=== PATIENT | female | born 1990 | race Caucasian/White ===

== ENCOUNTER → 2017-05-20 | Outpatient (REF) | payer OTHER | LOC: M SFHCCLAY 10:35 | DX: J02.9 Acute pharyngitis, unspecified (principal) ==

== ENCOUNTER → 2017-11-06 | Outpatient (REF) | payer OTHER ==
[2017-11-06 12:45] LABS: BASO % 0.3 % (0.0-1.0); EOS # 0.2 10^3/uL (0.0-0.50); EOS % 2.2 % (0.0-3.0); HEMATOCRIT 35.5 % (36.0-47.0); HEMOGLOBIN 12.2 g/dl (12.0-15.5); IMMATURE GRANULOCYTE % 0.8 % (0-3.0); LYMPH # 2.2 10^3/uL (1.5-6.5); LYMPH % 21.7 % (24.0-44.0); MEAN CORPUSCULAR HEMOGLOBIN 29.8 pg (27.0-33.0); MEAN CORPUSCULAR HGB CONC 34.4 g/dl (32.0-36.5); MEAN CORPUSCULAR VOLUME 86.6 fl (80.0-96.0); MONO # 0.6 10^3/uL (0.0-0.8); MONO % 6.1 % (0.0-5.0); NEUTROPHILS # 7.1 10^3/uL (1.8-7.7); NEUTROPHILS % 68.9 % (36.0-66.0); PLATELET COUNT, AUTOMATED 320 10^3/uL (150-450); RED CELL DISTRIBUTION WIDTH 13.2 % (11.5-14.5); WHITE BLOOD COUNT 10.2 10^3/uL (4.0-10.0)
[2017-11-06 14:42] LABS: CHLAMYDIA DNA AMPLIFICATION NEGATIVE (NEGATIVE); GC DNA AMPLIFICATION NEGATIVE (NEGATIVE)
[2017-11-07 10:31] LABS: RUBELLA IgG QUALITATIVE IMMUNE (IMMUNE)
[2017-11-07 10:42] LABS: HBsAg Prenatal NEGATIVE (NEGATIVE)
[2017-11-07 11:01] LABS: HIV 1&2 SCREEN CENTAUR NEGATIVE (NEGATIVE)
[2017-11-07 11:01] LABS: HEPATITIS C VIRUS ABY INDEX 0.1 INDEX (<0.8)
== END ==
LOC: M LAB REF 11:50
DX: Z34.81 Encounter for supervision of other normal pregnancy, first trimester (principal); Z3A.12 12 weeks gestation of pregnancy

== ENCOUNTER → 2017-12-11 | Outpatient (REF) | payer OTHER | LOC: M LABDRAWC 11:49 | DX: Z34.82 Encounter for supervision of other normal pregnancy, second trimester (principal); Z36.89 Encounter for other specified antenatal screening | CPT/HCPCS: 87086 ==

== ENCOUNTER → 2017-12-16 | Outpatient (REF) | payer OTHER, BC | LOC: M LAB REF 17:34 | DX: Z34.82 Encounter for supervision of other normal pregnancy, second trimester (principal) ==

== ENCOUNTER → 2017-12-22 | Outpatient (CLI) | payer OTHER, BC | LOC: M RAD 13:29 | DX: Z36.89 Encounter for other specified antenatal screening (principal); Z3A.19 19 weeks gestation of pregnancy | CPT/HCPCS: 76811 ==

== ENCOUNTER → 2018-01-26 | Outpatient (CLI) | payer BC, OTHER | LOC: M RAD 11:26 | DX: O32.1XX0 Maternal care for breech presentation, not applicable or unspecified (principal); Z36.89 Encounter for other specified antenatal screening; Z3A.26 26 weeks gestation of pregnancy | CPT/HCPCS: 76816 ==

== ENCOUNTER → 2018-01-26 | Outpatient (CLI) | payer BC, OTHER ==
[2018-01-26 13:45] LABS: HEMATOCRIT 36.2 % (36.0-47.0); MEAN CORPUSCULAR HEMOGLOBIN 29.8 pg (27.0-33.0); MEAN CORPUSCULAR HGB CONC 33.1 g/dl (32.0-36.5); MEAN CORPUSCULAR VOLUME 89.8 fl (80.0-96.0); PLATELET COUNT, AUTOMATED 328 10^3/uL (150-450); RED BLOOD COUNT 4.03 10^6/uL (4.00-5.40); RED CELL DISTRIBUTION WIDTH 13.7 % (11.5-14.5); WHITE BLOOD COUNT 12.4 10^3/uL (4.0-10.0)
[2018-01-26 13:52] LABS: GLUCOSE CHALLENGE TEST 1 HOUR 118 MG/DL (LESS THAN 140)
== END ==
LOC: M SMT 09:21
DX: Z34.02 Encounter for supervision of normal first pregnancy, second trimester (principal)
CPT/HCPCS: 82950

== ENCOUNTER → 2018-04-07 | Outpatient (REF) | payer OTHER | LOC: M LAB REF 17:02 | DX: Z34.83 Encounter for supervision of other normal pregnancy, third trimester (principal) ==

== ENCOUNTER 2018-05-02 07:25 | Inpatient (IN) | payer BC, OTHER ==
[~2018-05-02] VITALS: Ht 152.4 cm; Wt 113.9 kg
[2018-05-02] VITALS (20 sets, daily range): BP systolic 109–145; BP diastolic 55–90
[2018-05-02] MEDS ORDERED: LACTATED RINGER'S 1000 ML IV STA (08:00)
--- NOTE | 2018-05-02 08:16 | HPEPDOC ---
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 BREAST: . ABDOMEN: Gravid and non-tender to touch. FETUS: Is vertex (VTX) by sterile vaginal examination (SVE), fetus is vertex (VTX) by [place]. HEART RATE: Regular rate and rhythm. LUNGS: Clear to auscultation (CTA). EXTREMITIES: No edema. No clonus. Deep tendon reflexes (DTRs) + 2. Laboratory Data [facility]H [facility] Laboratory Tests 2 05/02/18 07:42: Serology Scanned Report Hepatitis B Testing Pertinent Laboratoy Data Blood Type: A+ RBC Antibody Screen: Negative HIV: Negative Hepatitis B: Negative Hepatitis C: Negative Rapid Plasma Reagin: Nonreactive Rubella: Nonreactive Chlamydia/Gonorrhea: Negative Group B Streptococcus: Negative Quad Screen Test: Declined Glucose Tolerance Test: 118 Anatomy Ultrasound Ultrasound Date: Dec 22, 2017 Placenta Location: Posterior Normal Anatomy: Yes Placenta Previa: No Estimated Weight (grams): 315 Steroid Therapy Steroid Therapy: No Vaginal Examination Dilation: None Effacement: 30% Station: -3 Cervical Consistency: Medium Cervical Position: Posterior Assessment Heart Rate (FHR): 145 Variability: Moderate Accelerations: Positive Decelerations: None Tocometer Contractions: No Assessment/Plan Assessment Susu is a 27-year-old (G)1 para (P)0-0-0-0 at 40+0 weeks by 12-week ultrasound. Presents to Labor and Delivery (L&D) for induction of labor due to gestational hypertension. Denies LOF, bleeding or regular UC. Plan Admit and orient per consult Dr Ovalle Steward/Stewardess Third and consent. Diet: regular. Group B Streptococcus (GBS) negative. Labs and intravenous (IV) per unit protocol. Counseled on misoprostol, Pitocin and induction of labor (IOL). Lactated Ringers (LR): Bolus 500 mL, then saline lock. Plans to labor ad phani Anticipate normal spontaneous delivery (). C-S as appropriate. Jolie Vazquez CNM May 02, 2018 08:16
[2018-05-02 08:31] LABS: HEMATOCRIT 36.1 % (36.0-47.0); HEMOGLOBIN 12.4 g/dl (12.0-15.5); MEAN CORPUSCULAR HEMOGLOBIN 30.2 pg (27.0-33.0); MEAN CORPUSCULAR HGB CONC 34.3 g/dl (32.0-36.5); MEAN CORPUSCULAR VOLUME 87.8 fl (80.0-96.0); PLATELET COUNT, AUTOMATED 312 10^3/uL (150-450); RED BLOOD COUNT 4.11 10^6/uL (4.00-5.40); WHITE BLOOD COUNT 12.3 10^3/uL (4.0-10.0)
[2018-05-02] MEDS: miSOPROStol 50 MCG 1/2 TAB (S0191) PO SCH ×3 (08:33→19:45)
[2018-05-02 09:39] LABS: ALT/SGPT 13 U/L (12-78); BILIRUBIN,TOTAL 0.3 MG/DL (0.2-1.0); CREATININE FOR GFR 0.49 MG/DL (0.55-1.30); GLOMERULAR FILTRATION RATE > 60.0 (>60); LDH LACTATE DEHYDROGENASE 187 U/L (84-246); URIC ACID 4.9 MG/DL (2.6-6.0)
--- NOTE | 2018-05-02 21:40 | NUR ---
Progress Note Patient has received 3 doses of misoprostol 50mcg PO for cervical ripening. No VB/LOF/painful uctx. Patient feeling intermittent mildly uncomfortable ctxs. +FM. No ERICKSON, visual changes, RUQ pain, sob, cp. Currently normotensive, normal HR, afebrile SVE: /-3 EFM: Cat I [place]: irreg ctx A/P: Reassuring maternal and status during cervical ripening phase of IOL. -Plan is for Cook balloon mechanical cervical dilation after 4th dose of misoprostol, if cervix remains unchanged. Beatriz Ovalle DO
[2018-05-03] VITALS (25 sets, daily range): BP systolic 102–148; BP diastolic 56–91
[2018-05-03] MEDS: miSOPROStol 50 MCG 1/2 TAB (S0191) PO SCH ×2 (00:29→04:58)
--- NOTE | 2018-05-03 09:32 | NUR ---
Progress Note Patient has received a total of 5 doses of misoprostol 50mcg PO. No VB/LOF or frequent, painful uterine contractions. Currently normotensive, afebrile SVE: /-2, soft, intact/cephalic EFM: Cat I [place]: irreg contractions Cook balloon inserted: 60ml/40ml A/P: Reassuring maternal and status. Undergoing cervical ripening. -Cook balloon + Pitocin -Repeat SVE when balloon is out. Beatriz Ovalle DO
[2018-05-03] MEDS ORDERED: OXYTOCIN DRIP 30 UNITS in APPROPRIATE DILUENT 1 EA IV SCH ×2 (09:45→23:24)
[2018-05-03] MEDS: LACTATED RINGER'S 1000 ML IV SCH ×2 (10:15→18:47)
[2018-05-03] MEDS ORDERED: PROMETHAZINE INJ 25 MG/ML VIAL (J2550) IV ONE ×2 (10:45→17:45)
[2018-05-03] MEDS ORDERED: BUTORPHANOL 2 MG/ML INJ (J0595) IV ONE (10:45)
--- NOTE | 2018-05-03 17:16 | NUR ---
Progress Note Cook balloon fell out at 1535. +Bloody show. No LOF. Patient is significantly more uncomfortable with uterine contractions. Intermittently hypertensive (mild range), afebrile SVE: 5cm/90%/-1, cephalic AROM, clear FSE placed (RN complains of difficulty tracing FHR continuously): FHR Cat I [place]: ctxs every 3-5 min; not tracing very well. A/P: Approaching active phase of labor. Reassuring maternal and status. -Repeat SVE in 2-4 hours -Continue with Pitocin. -Patient considering epidural. Beatriz Ovalle DO
[2018-05-03] MEDS ORDERED: BUTORPHANOL 2 MG/ML INJ (J0595) IV PRN (17:45)
[2018-05-03] MEDS ORDERED: FENTANYL 2MCG/ML ROPIVACAINE 0.2% IN 0.9% NACL 100ML IVBAG As Ordered ONE (19:12)
[2018-05-03] MEDS ORDERED: ePHEDrine SULFATE 25 MG/5 ML(5MG/ML) SYRINGE As Ordered ONE (22:04)
[2018-05-03] MEDS ORDERED: ePHEDrine SULFATE 25 MG/5 ML(5MG/ML) SYRINGE IV PRN (22:15)
[2018-05-03] MEDS ORDERED: ONDANSETRON 4MG/2ML VIAL (J2405) IV PRN ×2 (22:15→23:30)
[2018-05-03] MEDS ORDERED: REFRIGERATOR IV KEYS XX PRN (22:15)
[2018-05-03] MEDS ORDERED: NALOXONE INJ 0.4 MG/1 ML VIAL (J2310) IV PRN (22:15)
[2018-05-03] MEDS ORDERED: LACTATED RINGER'S 1000 ML IV PRN (22:15)
[2018-05-03] MEDS ORDERED: EPIDURAL/PCA KEYS XX PRN (22:15)
[2018-05-03] MEDS ORDERED: diphenhydrAMINE INJ 50MG/ML VIAL (J1200) IV PRN (22:15)
[2018-05-03] MEDS ORDERED: FENTANYL/ROPIVACAINE/NACL BAG 100 ML EPIDURAL SCH (22:15)
[2018-05-03] MEDS ORDERED: EPIDURAL COMMENT XX SCH (22:15)
[2018-05-03] MEDS: LR 1,000 ML IV SCH (23:24)
--- NOTE | 2018-05-03 23:24 | NUR ---
Delivery note Spontaneous vaginal delivery Estimated gestational age at delivery: 40+1 weeks The active phase and second stage of labor progressed in normal fashion with epidural anesthesia. Patient received Pitocin labor augmentation. heart rate reassuring throughout labor. The head delivered left occiput anterior and restituted left occiput transverse. No nuchal cord was noted. The anterior shoulder delivered with gentle downward guidance and the remainder of the body delivered with ease. Cord clamping was delayed for approximately 1 minute after delivery. After doubly clamping the cord, I cut the cord. The was placed on the patient's chest for immediate bonding. data: Apgars 9 and 9. weight 3410 grams, 7 pounds, 8 ounces. Time of delivery: 225. Sex: Female. The third stage of labor was actively managed with a bolus of IV Pitocin (30 units in 500 mL of normal saline). The placenta delivered completely intact with no missing cotyledons at 2259. A three-vessel cord with a central insertion was noted. After delivery of the placenta, the uterine fundus was approximately 2 cm below the umbilicus and firm. IV Pitocin was continued to maintain uterine tone. A normal, low level of uterine bleeding was noted. The cervix, vagina, vulva and perineum were inspected for lacerations. A second degree laceration was noted. This was repaired with 3-0 Vicryl in typical fashion. Excellent hemostasis was noted. Estimated blood loss: 300 mL All sponges, needles, and instruments were accounted for per SUPPORT SERVICES REP department protocol. Pancho Ovalle D.O., F.A.C.OBlas.
[2018-05-03 23:28] LABS: CORD GAS ABE V -11.4; CORD GAS O2 SAT V 73.6 %; CORD GAS PCO2 V 46.8 mmHg; CORD GAS PH V 7.177 UNITS; CORD GAS PO2 V 40.9 mmHg; CORD GAS SBC V 15.3 MEQ/L; CORD GAS TCO2 V 18.4 MEQ/L
[2018-05-03] MEDS ORDERED: MEASLES,MUMPS,RUBELLA VACCINE INJ (MMR-II) (90707) SC SCH (23:30)
[2018-05-03] MEDS ORDERED: IBUPROFEN 800 MG TAB PO PRN (23:30)
[2018-05-03] MEDS ORDERED: PROMETHAZINE 25 MG TAB PO PRN (23:30)
[2018-05-03] MEDS ORDERED: DIBUCAINE 1% OINTMENT 30GM TOP PRN (23:30)
[2018-05-03] MEDS ORDERED: RHOGAM 300 MCG (1500 IU) INJ (J2790) IM SCH (23:30)
[2018-05-03] MEDS ORDERED: ACETAMINOPHEN 500 MG TAB PO PRN (23:30)
[2018-05-03] MEDS ORDERED: DOCUSATE SODIUM 100 MG CAP PO PRN (23:30)
[2018-05-04 02:11] VITALS: BP 126/59
[2018-05-04 06:00] VITALS: BP 109/51
[2018-05-04] MEDS: LR 1,000 ML IV SCH ×3 (06:25→23:24)
--- NOTE | 2018-05-04 08:00 | NUR ---
Day 1 Status post , uncomplicated Subjective Pain is well controlled. Lochia decreasing and minimal. Voiding spontaneously. Tolerating a regular diet. Ambulating without any assistance. Denies any subjective fever/chills/nausea/vomiting/headache/visual changes/shortness of breath/chest pain. Breast feeding. Objective Vitals: Normotensive, normal heart rate, afebrile, adequate urine output. Heart: regular, rate, and rhythm. no murmurs/gallops/rubs Lungs: clear to auscultation bilaterally, no wheezes/crackles/rales/ronchi Abd: soft, nontender, nondistended, uterine fundus is 2cm below umbilicus and firm Ext: no significant edema, nontender, negative Brenden's bilaterally. Assessment/Plan: day 1. Recovering well. Hemodynamically stable, afebrile, good pain control. -Routine care -Discharge to home tomorrow. -Routine infectious, fever, pain, and bleeding precautions reviewed Juany Johansen.O., F.A.C.O.G.
[2018-05-04] MEDS: PRENATAL VITAMINS CHEWABLE TABLET PO SCH (08:08)
[2018-05-04 11:30] VITALS: BP 116/55
[2018-05-04 18:00] VITALS: BP 110/70
[2018-05-05 06:03] VITALS: BP 110/71
[2018-05-05] MEDS: PRENATAL VITAMINS CHEWABLE TABLET PO SCH (08:31)
[2018-05-05] MEDS ORDERED: IBUP-1114 PO (09:51)
[2018-05-05] MEDS ORDERED: MAPA500T2 PO (09:51)
[2018-05-05] MEDS ORDERED: PRENTAB55 PO (09:51)
== END 2018-05-05 10:55 | disposition home or self-care (01) | DRG 560 ==
LOC: M LDI 07:25 → M OBS 05-04 02:10
PROVIDERS: ADMIT Obstetrics & Gynecology; ATTEND Obstetrics & Gynecology
PROC: 10907ZC Drainage of Amniotic Fluid, Therapeutic from Products of Conception, Via Natural or Artificial Opening (ICD-10-PCS; 2018-05-02)
PROC: 3E0P7GC Introduction of Other Therapeutic Substance into Female Reproductive, Via Natural or Artificial Opening (ICD-10-PCS; 2018-05-02)
PROC: 10E0XZZ Delivery of Products of Conception, External Approach (ICD-10-PCS; principal; 2018-05-03)
PROC: 0KQM0ZZ Repair Perineum Muscle, Open Approach (ICD-10-PCS; 2018-05-03)
DX: O13.4 Gestational [pregnancy-induced] hypertension without significant proteinuria, complicating childbirth (principal); Z3A.40 40 weeks gestation of pregnancy; O70.1 Second degree perineal laceration during delivery; Z37.0 Single live birth

== ENCOUNTER → 2018-07-29 | Outpatient (REF) | payer OTHER ==
[~2018-07-29] MED LIST: IBUP-1114 PO; MAPA500T2 PO; PRENTAB55 PO
== END ==
LOC: M LAB REF 17:13
PROVIDERS: ATTEND Obstetrics & Gynecology
DX: Z12.4 Encounter for screening for malignant neoplasm of cervix (principal)

== ENCOUNTER → 2021-06-05 | Outpatient (REF) | payer OTHER | LOC: M SFHCCLAY 16:28 | PROVIDERS: ATTEND Family Medicine | DX: Z53.20 Procedure and treatment not carried out because of patient's decision for unspecified reasons (principal) ==

== ENCOUNTER → 2023-05-02 | Outpatient (REF) | payer OTHER, BC | LOC: M SFHCCLAY 16:50 | PROVIDERS: ATTEND Family Medicine | DX: B34.9 Viral infection, unspecified (principal) ==

== ENCOUNTER → 2024-12-07 | Outpatient (REF) | payer BC | LOC: M SFHCCLAY 13:42 | PROVIDERS: ATTEND Physician Assistant | DX: Z53.9 Procedure and treatment not carried out, unspecified reason (principal) ==